=== PATIENT | female | born 1985 | race Caucasian/White ===

== ENCOUNTER 2018-08-07 11:19 | Emergency (ER) | payer OTHER ==
--- NOTE | 2018-08-07 12:09 | EDPHY ---
H & P Time Seen by Provider: 08/07/18 12:05 HPI/ROS: CHIEF COMPLAINT: Vaginal bleeding HISTORY OF PRESENT ILLNESS: The patient is a 33-year-old female presents emergency department with vaginal bleeding. The patient has an IUD in place for the past 6 years. She has been with the same partner for the past 11 years. Patient states that yesterday she had slightly more prolonged and aggressive sex than normal. Post intercourse she had some vaginal bleeding. She was concerned that she may have sustained an injury. She has continued to have vaginal bleeding. She is due to have her menses on August 08. The patient denies significant pain. No lightheadedness or dizziness. No nausea or vomiting. No fevers or chills. No dysuria or frequency. REVIEW OF SYSTEMS: 10 systems were reveiwed and are negative with the exception of the elements mentioned in the history of present illness. Past Medical/Surgical History: Negative Social history: Patient is . She does not smoke. Smoking Status: Never smoked Physical Exam: Vitals noted GENERAL: Well-appearing, in no acute distress, alert. HEENT: Eyes normal to inspection, no signs of dehydration. RESPIRATORY: Clear to auscultation bilaterally, no rales, rhonchi or wheezing. CVS: Regular rate and rhythm, no rubs, murmurs, or gallops. ABDOMEN: Soft, nontender, nondistended, no organomegaly. FEMALE : Patien on external exam there is slight bloody discharge. Speculum exam notable for blood coming from the cervical os. IUD string appears to be in the appropriate location. Normal appearing cervix. No lesions or discharge. No visible laceration. Bimanual exam: Normal, no tenderness to palpation bilaterally, normal ovaries bilaterally, normal uterus. BACK: Normal to inspection, no CVA tenderness. SKIN: Normal color, no rash, warm, dry. No pallor. EXTREMITIES: No pedal edema, no joint swelling. NEURO/PSYCH: Alert and oriented, normal mood and affect. Constitutional: Initial Vital Signs Temperature (C) 36.6 C 08/07/18 11:26 Heart Rate 98 08/07/18 11:26 Respiratory Rate 16 08/07/18 11:26 Blood Pressure 134/102 H 08/07/18 11:26 O2 Sat (%) 98 08/07/18 11:26 O2 Delivery Mode Room Air Allergies/Adverse Reactions: No Known Allergies Allergy (Verified 08/07/18 11:26) Home Medications: Medication Instructions Recorded NK [No Known Home Meds] 08/07/18 Medical Decision Making ED Course/Re-evaluation: In the emergency department I discussed possible etiologies with the patient. I answered all her questions. The gynecologic exam was performed with nursing staff present. I saw no vaginal laceration or abnormality. The blood appeared to be coming from the cervical os. Because of this and ultrasound was ordered. Laboratory studies were ordered. Chemistry panel is unremarkable. While patient was waiting for ultrasound she called me into her room. The patient stated that she did not want to remain in the emergency department. She did not want further testing. I discussed the pending studies in the reasons for ordering those studies. I answered all her questions. The patient had capacity and she was competent to make the decision to leave. She was given warnings prior to leaving. She will return with worsening symptoms. She was instructed to follow up closely with her oncology rn. Differential Diagnosis: My differential includes but is not limited to menses, , ectopic , vaginal laceration, uterine mass, malignancy, IBD perforation, IUD dislodgement - Data Points Laboratory Results: 08/07/18 12:17 POC Sodium 140 mEq/L mEq/L (135-145) POC Potassium 3.3 mEq/L mEq/L (3.3-5.0) POC Chloride 105.0 mEq/L mEq/L (97-110) POC Total CO2 26 mEq/L mEq/L (22-31) POC BUN 9 mg/dL mg/dL (7-23) POC Creatinine 0.9 mg/dL mg/dL (0.6-1.0) POC Glucose 99 mg/dL mg/dL (70-100) POC Calcium 9.2 mg/dL mg/dL (8.5-10.4) Point of Care Test Results: CBC CBC Collection Date 08/07/18 CBC Collection Time 12:15 WBC 8.10 RBC 4.42 HGB 14.9 HCT 41.1 PLT 305 Neut # 5.33 Neut 65.8 LYMPH # 1.96 LYMPH 24.2 MCV 93.0 Chemistry 08/07/18 12:17 POC Sodium 140 mEq/L mEq/L (135-145) POC Potassium 3.3 mEq/L mEq/L (3.3-5.0) POC Chloride 105.0 mEq/L mEq/L (97-110) POC Total CO2 26 mEq/L mEq/L (22-31) POC BUN 9 mg/dL mg/dL (7-23) POC Creatinine 0.9 mg/dL mg/dL (0.6-1.0) POC Glucose 99 mg/dL mg/dL (70-100) POC Calcium 9.2 mg/dL mg/dL (8.5-10.4) Urine Collection Date 08/07/18 Collection Time 12:00 HCG Results Negative Departure - Departure Disposition: Home, Routine, Self-Care Clinical Impression: Vaginal bleeding Condition: Good Instructions: Acute Abdominal Pain (ED) Additional Instructions: Return with increasing bleeding, lightheadedness, dizziness, abdominal pain, fever or any other concerns. Referrals: NONE *PRIMARY CARE P,. [Primary Care Provider] - As per Instructions Alicia Marr MD [Medical Doctor] - 2-3 days, if not improved
[2018-08-07 12:54] VITALS: BP 120/80
== END 2018-08-07 12:53 | disposition home or self-care (01) ==
LOC: CED 11:19
DX: N93.9 Abnormal uterine and vaginal bleeding, unspecified (principal); Z97.5 Presence of (intrauterine) contraceptive device; Z53.20 Procedure and treatment not carried out because of patient's decision for unspecified reasons
CPT/HCPCS: 80048-ER; 81025-ER; 85025-QW-ER; 99284-ER